=== PATIENT | female | born 1985 | race Caucasian/White ===

== ENCOUNTER 2024-12-28 20:50 | Emergency (ER) | payer OTHER, SELFPAY ==
[2024-12-28 20:53] VITALS: BP 140/85
[2024-12-28 21:12] LABS: % Basophils 0.5 % (0-2); % Immature Granulocytes 0.2 % (0-0.5); % Lymphocytes 28.1 % (20.5-51.1); % Monocytes 8.7 % (1.7-9.3); % Neutrophils 59.5 % (42.2-75.2); Absolute Eosinophils 0.2 10^3/uL (0-0.7); Absolute Lymphocytes 2.3 10^3/uL (1.2-3.4); Absolute Monocytes 0.7 10^3/uL (0.1-0.6); Absolute Neutrophils 4.8 10^3/uL (1.4-6.5); Hematocrit 41.3 % (37.0-47.0); Hemoglobin 13.7 g/dL (12.0-16.0); Mean Corp Hgb Conc. 33.2 g/dL (33.0-37.0); Mean Corpuscular Hgb 31.4 pg (27.0-31.0); Mean Corpuscular Volume 94.7 fL (81.0-99.0); Mean Platelet Volume 10.6 fL (7.4-10.4); Nucleated Red Blood Cells % 0 %; Platelet Count 254 10^3/uL (130-400); Red Blood Cell Count 4.36 10^6/uL (4.20-5.40); Red Cell Dist. Width 14.5 % (11.5-14.5)
[2024-12-28 21:28] VITALS: BMI 39.2
[2024-12-28 21:30] VITALS: BP 125/84
[2024-12-28 21:35] LABS: ALT (SGPT) 17 U/L (0-35); AST (SGOT) 22 U/L (14-36); Albumin 4.2 g/dl (3.5-5.0); Alkaline Phosphatase 114 U/L (38-126); Blood Urea Nitrogen 11 mg/dl (7-17); Calcium 8.8 mg/dl (8.4-10.2); Carbon Dioxide 27 mmol/L (22-30); Chloride 103 mmol/L (98-107); Estimated Creatinine Clearance 108 ml/min; Glucose 76 mg/dl (70-99); Magnesium 2.2 mg/dl (1.6-2.3); Potassium 4.4 mmol/L (3.5-5.1); Sodium 137 mmol/L (135-145); Total Bilirubin 0.5 mg/dl (0.2-1.3); Total Protein 6.7 g/dl (6.3-8.2); eGFR > 60.00
[2024-12-28 21:47] LABS: Troponin I < 0.012 ng/ml
[2024-12-28 22:00] VITALS: BP 118/66
--- NOTE | 2024-12-28 22:01 | ED.GENMED ---
History of Present Illness
General
Chief Complaint: Chest Pain
Source: patient
Exam Limitations: none
Time Seen by Provider: 12/28/24 21:49
History of Present Illness
History of Present Illness:
See MDM
Past History
Past History
ED Past Medical History: Asthma and Psychiatric (Anxiety, Depression)
ED Past Surgical History: None and Orthopedic (Left knee surgery, Right facial surgery)
Social History
Tobacco: Former smoker
Alcohol: None
Drug: None
Personal: Single
Living: with family
Employment: Employed
Phy Exam
Physical Exam
Physical Exam:
See MDM
Scores
Heart Score for Chest Pain Patients
STEMI patient?: No
History: Slightly or Non-Suspicious
ECG: Normal
Age: </= 45 years
Risk Factors: No Risk Factors
Troponin: </= Normal Limit
Heart Score for Chest Pain Patients: 0
Heart Score Risk: 2.5% MACE over next 6 weeks
Course
Orders/Labs/Results
Orders:
Orders
12/28/24 20:51
Electrocardiogram (*1) Urgent
Reason for Study: Chest Pain
EKG- Treatment ONCE
12/28/24 21:02
Complete Blood Count/With Diff Urgent
Comprehensive Metabolic Panel Urgent
Magnesium Urgent
TSH Reflex To Free T4 Urgent
Troponin I Urgent
12/28/24 21:59
CR Chest - 2 Views Urgent
Comment:
Reason For Exam: central chest pain
Abnormal Lab Results
12/28/24
21:02
MCH 31.4 H pg
(27.0-31.0)
MPV 10.6 H fL
(7.4-10.4)
Absolute Monos (auto) 0.7 H 10^3/uL
(0.1-0.6)
12/28/24 21:02
12/28/24 21:02
Vital Signs
Initial and Last Documented VS:
Initial Vital Signs
Temp Pulse Resp BP Pulse Ox
98.2 F 82 20 140/85 97
12/28/24 20:53 12/28/24 20:53 12/28/24 20:53 12/28/24 20:53 12/28/24 20:53
Last Documented Vital Signs
Temp Pulse Resp BP Pulse Ox
98.2 F 82 18 125/84 98
12/28/24 20:53 12/28/24 21:30 12/28/24 21:30 12/28/24 21:30 12/28/24 21:30
MDM/Problems Addressed
Differential Diagnosis Includes:
HPI and MDM Narrative:
39-year-old female presenting with mild central chest discomfort. 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 She noticed it again earlier today when she was at home. She states she has a constant pressure in her central chest. It
does feel better when she rubs it. While she was developing the discomfort, she also felt her heart rate was racing. On my exam, she is extremely well-appearing and nontoxic. Blood work and EKG were done prior to my exam. We discussed the
negative workup but will add chest x-ray for completion sake. She has no clinical evidence to suggest PE. Patient does acknowledge that her workup is minimally concerning. Patient is starting to believe that her symptoms could be anxiety related.
She were not, we discussed that her symptoms are real and stressed the importance of outpatient follow-up with PCP
Physical exam
General: Well appearing and non-toxic
HEENT: protecting airway
Neck: appears supple
CV: No evidence of cyanosis. Regular rate and rhythm
Resp: No accessory muscle use. Lungs clear
Abd: Non-distended
Extremities: No deformities. No leg edema or tenderness
Neuro: alert
Psych: Normal affect
Skin: Intact
Problems Addressed including Acute and Chronic Conditions affecting care:
1. Chest pressure
Acuity: acute
Prognosis: stable
Details: Given no clinical signs of DVT or PE and normal troponin and EKG, symptoms are likely nonconcerning. Regardless, we discussed the importance of outpatient follow-up
Updates
Chest x-ray clear. Discussed follow-up with PCP for further workup and evaluation
Differential Diagnosis (but not limited to): Noncardiac chest pain, cardiac arrhythmia, anxiety
Testing considered: D-dimer but she is neither tachycardic nor hypoxic. No unilateral leg tenderness or edema
Drug therapy (if applicable): OTC meds, please see d/c instruction regarding Rx drugs
Amount and/or Complexity of Data Reviewed
Clinical info obtained from: Patient
External data reviewed: N/A
Labs I independently reviewed (but not limited to): Troponin normal
Radiology: X-ray independently reviewed: Chest x-ray clear
Pulse Ox: not hypoxic
EKG independently reviewed: Sinus rhythm, normal axis, no STEMI
Outbound Sales Professional: N/A
Critical Care: N/A
Risk of Complication:
Social Determinants of health: Good social support
Discussed with other providers: N/A
Escalation of Care includes Admit/Obs: After being observed in the Emergency Department, pt stable for discharge.
Occasional wrong word or 'sound a like' substitutions may have occurred due to the inherent limitations of voice recognition software. Read the chart carefully and recognize, using context, where substitutions have occurred.
*Critical Care Note
Total Time (30-74mins, 75-104mins- exclusive of procedures): Not Applicable
ED Attending Note
-
Portions of this chart may have been created with voice recognition software.� Occasional wrong word or��sound alike� substitutions may have occurred due to the inherent limitations of voice recognition software.
Discharge Plan
Departure
Patient Disposition: Home (Routine Discharge)
Date of Disposition: 12/28/24
Time of Disposition: 22:29
Patient with high blood pressure during this ER visit?: No
Discharge Problem:
Chest pressure
Instructions: Chest Pain PCP Follow Up
Prescriptions:
No Action
sertraline [Zoloft] 100 mg Tablet
100 mg PO DAILY
bupropion HCl [Wellbutrin] 100 mg Tablet
100 mg PO DAILY
Referrals:
Naty Traore MD [Family Provider] -
Activity Restrictions/Additional Instructions:
Please return for any worsening symptoms.
You may return at any time if you have further concerns.
Please follow up with your doctor at the first available appointment, preferably this week.
You may benefit from a trial of Pepcid [id number] for the next few days.
Thank you for choosing [facility].
Interventions
Interventions:
*Risk Screen - Suicide Last Done: 12/28/24 21:29
*General Assessment Last Done: 12/28/24 21:29
*Neglect/Abuse Screening Last Done: 12/28/24 21:29
*ED COVID-19 Vaccine History Last Done: 12/28/24 21:29
ED- Cardiac Assessment Last Done: 12/28/24 21:31
Discharge Date and Time
Print Language: [email or web address]
== END 2024-12-28 22:38 | disposition home or self-care (01) ==
LOC: EMR 20:50
PROVIDERS: EMERGENCY PHYSICIAN Student in an Organized Health Care Education/Training Program; FAMILY PHYSICIAN Family Medicine
DX: R07.89 Other chest pain (principal); J45.909 Unspecified asthma, uncomplicated; Z87.891 Personal history of nicotine dependence
CPT/HCPCS: 99285; 71046; 80053; 83735; 84443; 84484; 85025; 93005

== ENCOUNTER → 2025-05-30 22:00 | Outpatient (REF) | payer OTHER, SELFPAY | LOC: DHSLP 22:00 | PROVIDERS: ATTENDING PHYSICIAN Internal Medicine Critical Care Medicine; FAMILY PHYSICIAN Family Medicine | DX: G47.33 Obstructive sleep apnea (adult) (pediatric) (principal) | CPT/HCPCS: 95800 ==

== ENCOUNTER → 2025-08-15 15:50 | Outpatient (REF) | payer OTHER, SELFPAY | LOC: RCS 15:50 | PROVIDERS: ATTENDING PHYSICIAN Nurse Practitioner Family | DX: R00.2 Palpitations (principal); R07.9 Chest pain, unspecified | CPT/HCPCS: 93306 ==

== ENCOUNTER 2025-08-17 23:00 | Emergency (ER) | payer OTHER, SELFPAY ==
[2025-08-17 23:25] VITALS: BP 118/79
[2025-08-18 01:57] VITALS: BP 129/70
--- NOTE | 2025-08-18 03:20 | ED.MUSCINJ ---
HPI-Injury
General
Chief Complaint: Musculo-Skeletal Complaint
Source: patient
Exam Limitations: none
Time Seen by Provider: 08/18/25 02:26
Nursing documentation reviewed up to this point in time: agreed with
History of Present Illness-Injury
Initial Injury comments:
Note:
CHIEF COMPLAINT(S)
Right knee pain and swelling.
HISTORY OF PRESENT ILLNESS
The patient is a 40-year-old female who reports the sudden onset of right knee pain that began this morning without any preceding injury. Throughout her work shift, where she was on her feet for approximately 12 hours, the knee started to swell and
progressively worsened. The patient described the area as slightly swollen and noted that it was not red or hot to the touch.
PHYSICAL EXAM
General: Alert, no acute distress.
Skin: Warm, dry.
Head: Normocephalic, atraumatic.
Neck: Supple, trachea midline.
Eye Ears, nose, mouth and throat: Oral mucosa moist.
Cardiovascular: Normal peripheral perfusion, No edema.
Respiratory: Respirations are non-labored.
Gastrointestinal: Abdomen nondistended
Back: Normal range of motion, Normal alignment.
Musculoskeletal: Right knee is slightly swollen. No signs of induration or erythema, normal temperature. Normal Range of Motion, normal strength.
Neurological: Alert and oriented to person, place, time, and situation, No focal neurological deficit observed.
Psychiatric: Cooperative, appropriate mood & affect.
PLAN
Plan to perform aspiration on the right knee after numbing the area to assess and possibly relieve swelling.
DIFFERENTIAL DIAGNOSIS
The Differential Diagnosis includes, in no particular order and is not limited to:
1. Osteoarthritis
2. Bursitis
3. Tendinitis
4. Meniscal injury
5. Anterior cruciate ligament injury
6. Rheumatoid arthritis
7. Gout
8. Septic arthritis
9. Patellofemoral pain syndrome
10. Deep vein thrombosis
Disposition:
SUMMARY OF ENCOUNTER
The patient, a 40-year-old female, presented to the emergency department with right knee pain and swelling that developed suddenly without any injury. The knee exhibited a soft tissue prominence anterior to the patella, consistent with superficial
prepatellar bursitis. No fracture or dislocation was evident. An aspiration of the right knee was attempted to assess and relieve swelling, but it was not successful in demonstrating arthritis or infection. The patient consented to the procedure and
tolerated it well with no immediate adverse effects.
ASSESSMENT
The patient is most likely experiencing superficial prepatellar bursitis, based on clinical evaluation and imaging.
PROCEDURES
An attempted aspiration of the right knee to relieve swelling and collect synovial fluid for assessment. The procedure was performed after obtaining verbal consent and numbing the area.
PATIENT EDUCATION AND COUNSELING
The procedure and the findings were explained to the patient, including the likely diagnosis of prepatellar bursitis and the treatment plan.
FOLLOW-UP INSTRUCTIONS
The patient was advised to follow up with orthopedics for further management and evaluation of her right knee.
MEDICATION RECONCILIATION
No medication was administered or prescribed during the encounter.
MEDICAL DECISION MAKING
-Complexity of Data Reviewed: Chronic conditions affecting care include potential osteoarthritis, bursitis, tendinitis, meniscal injury, anterior cruciate ligament injury, rheumatoid arthritis, gout, septic arthritis, patellofemoral pain syndrome,
and deep vein thrombosis.
-Data:
Category 1
The radiology interpretation confirmed no evidence of fracture or dislocation of the right knee.
Category 3
Discussion of management with the patient regarding the need for orthopedic follow-up.
-Risk:
Consideration of Admission/Observation: Escalation of care including admission/observation was considered, given the complexity and risk of the patients presenting complaint and overall health status. However, with reassuring findings, stable
vitals, and patient agreement, the patient was deemed safe for outpatient management with close follow-up.
DIAGNOSIS
Prepatellar bursitis (ICD-10: M70.51)
Past History
Past History
ED Past Medical History: Asthma and Psychiatric (Anxiety, Depression)
ED Past Surgical History: None and Orthopedic (Left knee surgery, Right facial surgery)
Social History
Tobacco: Former smoker
Alcohol: None
Drug: None
Personal: Single
Living: with family
Employment: Employed
Phy Exam
Physical Exam
Physical Exam:
.
Injury Course
Orders/Labs/Results
Orders:
Orders
08/17/25 23:33
Knee, Right 4 or More Views [CR Knee- Right 4 Or More View*] Urgent
Comment:
Reason For Exam: knee pain, reddened
08/18/25 03:11
Crutches-Treatment ONCE
Knee Immobilizer Right-Treatme ONCE
*Pulse Oximetry
SaO2: 99
Oxygen Mode of Delivery: Room air
Patient hypoxic: no
*Critical Care Note
Total Time (30-74mins, 75-104mins- exclusive of procedures): Not Applicable
ED Attending Note
-
Portions of this chart may have been created with voice recognition software.� Occasional wrong word or��sound alike� substitutions may have occurred due to the inherent limitations of voice recognition software.
Discharge Plan
Departure
Patient Disposition: Home (Routine Discharge)
Date of Disposition: 08/18/25
Time of Disposition: 03:21
Patient with high blood pressure during this ER visit?: Yes
Condition: Good
Discharge Problem:
Bursitis, prepatellar, right
Instructions: How to Use Crutches, Prepatellar Bursitis Exercises, Bursitis - ED (DC), BLOOD PRESSURE
Prescriptions:
No Action
sertraline [Zoloft] 100 mg Tablet
100 mg PO DAILY
semaglutide
5 mg SC WEEKLY
Referrals:
Naty Traore MD [Family Provider, Family Practice]
Ebenezer Leong MD [Active, Orthopedics]
Stand Alone Forms: Return to Work
Activity Restrictions/Additional Instructions:
Thank You for choosing [facility].
It was a pleasure meeting you and taking part in your care. We hope for your continued healing and wellness.
Please read discharge instructions in their entirety. However, they are for general education and may not describe your exact diagnosis at discharge. Information on your ER visit and medical conditions were discussed with you along with appropriate
follow up information...
If indicated, please take your medications as instructed and indicated on discharge paperwork.
Please schedule a follow up appointment as directed. Call to schedule an appointment
Please return to the emergency department with ANY change in, persisting, or worsening of symptoms. If any of your symptoms do not improve, or persist, or become more severe within 6-12 hours, please return to the emergency department for further
care.
Please return to the emergency department if you develop a headache, neck pain/stiffness, fever greater than 100.4F, chest pain, shortness of breath, persistent nausea, vomiting, slurred speech, difficulty walking, numbness/tingling, weakness, signs
of infection or any other symptoms that are worrisome to you.
If you have any questions or concerns please do not hesitate to call the Hospital at .
Interventions
Interventions:
*Risk Screen - Suicide Last Done: 08/17/25 23:25
*General Assessment Last Done: 08/17/25 23:25
*Neglect/Abuse Screening Last Done: 08/17/25 23:25
*ED- Fall Risk Assessment Last Done: 08/17/25 23:34
*ED COVID-19 Vaccine History Last Done: 08/18/25 01:57
*Nursing Disposition Last Done: 08/18/25 03:29
ED-Musculoskeletal Assessment Last Done: 08/18/25 01:57
Discharge Date and Time
Discharge Date/Time: 08/18/25 03:34
Print Language: MACEDONIAN
== END 2025-08-18 03:34 | disposition home or self-care (01) ==
LOC: EMR 23:00
PROVIDERS: EMERGENCY PHYSICIAN Student in an Organized Health Care Education/Training Program; FAMILY PHYSICIAN Family Medicine
DX: M70.41 Prepatellar bursitis, right knee (principal); R03.0 Elevated blood-pressure reading, without diagnosis of hypertension; J45.909 Unspecified asthma, uncomplicated; F41.9 Anxiety disorder, unspecified; F32.A Depression, unspecified; Z87.891 Personal history of nicotine dependence
CPT/HCPCS: 99283; 20610; 73564

== ENCOUNTER → 2025-09-02 12:55 | Outpatient (REF) | payer OTHER, SELFPAY | LOC: RCS 12:55 | PROVIDERS: ATTENDING PHYSICIAN Nurse Practitioner Family | DX: R00.2 Palpitations (principal); R07.9 Chest pain, unspecified | CPT/HCPCS: 93017 ==

== ENCOUNTER → 2025-09-09 09:30 | Outpatient (REF) | payer OTHER, SELFPAY | LOC: RCS 09:30 | PROVIDERS: ATTENDING PHYSICIAN Nurse Practitioner Family | DX: R00.2 Palpitations (principal); R07.9 Chest pain, unspecified | CPT/HCPCS: 93225; 93226 ==